=== PATIENT | male | born 1975 | race Caucasian/White ===

== ENCOUNTER 2016-12-17 14:01 | Emergency (ER) | payer BC, MEDICAID ==
[2016-12-17 14:19] VITALS: BP 122/84; PULSE 85; RESP 18; TEMP 98; O2SAT 97
--- NOTE | 2016-12-17 14:58 | EDPHY ---
H & P Time Seen by Provider: 12/17/16 14:18 HPI/ROS: This patient reports some cough for 6 weeks. He describes this is dry in nature. The cough is more prominent in the morning in the afternoon. He took amoxicillin for 7 days 3 weeks into the illness without resolution of his symptoms. He had the amoxicillin at home. He did not see clinician. He now also has a sore throat for 3 days. The sore throat is mild in intensity. He notes no exacerbating or alleviating factors for symptoms. ROS: No fevers or chills. No night sweats. No other constitutional symptoms. HEENT: No nasal congestion. No ear pain Pulmonary: No pleuritic pain. No respiratory distress. No wheezing. No shortness of breath. No hemoptysis. Cardiovascular: No chest pain. No lightheadedness. No lower extremity swelling or calf pain. GI: No symptoms Integumentary: No skin rash. He did have a eponychium by his description to the left 3rd toe that resolve with warm soaks and antibiotic ointment 7 point ROS is otherwise negative. Past Medical/Surgical History: Otherwise healthy Social History: Nonsmoker. Rare marijuana Rare alcohol. No IV or illicit drug use Smoking Status: Light smoker Physical Exam: General Appearance: Alert, no distress. Eyes: Pupils equal and round no pallor or injection. ENT, Mouth: Mucous membranes moist. Respiratory: There are no retractions, lungs are clear to auscultation. Cardiovascular: Regular rate and rhythm. No murmur gallop rub. No leg swelling or tenderness Gastrointestinal: Abdomen is soft and nontender, no masses, bowel sounds normal. Neurological: GCS 15 with no sensory motor deficits Skin: Warm and dry, no rashes. Musculoskeletal: Neck is supple nontender. Extremities are symmetrical, full range of motion. Psychiatric: Mood and affect normal DIFFERENTIAL DIAGNOSIS: After history and physical exam differential diagnosis was considered for pertussis, other atypical bacteria, viral illness, viral pharyngitis, strep pharyngitis, influenza, pulmonary lesion, doubt parasitic disease or other Constitutional: Initial Vital Signs Temperature (C) 36.6 C 12/17/16 14:11 Heart Rate 85 12/17/16 14:11 Respiratory Rate 18 12/17/16 14:11 Blood Pressure 122/84 H 12/17/16 14:11 O2 Sat (%) 97 12/17/16 14:11 O2 Delivery Mode Room Air Allergies/Adverse Reactions: No Known Allergies Allergy (Unverified 09/27/15 15:46) Home Medications: Medication Instructions Recorded Azithromycin [Zithromax] 250 mg PO DAILY #6 tab 12/17/16 MDM/Departure - MDM Diagnostics: Chest x-ray: Normal by my interpretation ED Course/Re-evaluation: Rapid strep is negative Rapid influenza test is negative. Discussion: Will cover this patient with Zithromax antibiotic for potential pertussis or other atypical bacteria. I counseled regarding this. Patient looks well clinically with no lung findings on auscultation, heart murmurs, no history of illicit drug use, no clinical evidence to suggest PE or DVT and no other concerning findings. He will follow up with Dr. Eric Garcia of Infectious Disease for any ongoing symptoms despite the treatment plan. I also recommended he establish a primary care physician with Dr. Fenton the outpatient physician on-call for today. - Depart Disposition: Home, Routine, Self-Care Clinical Impression: Chronic cough Condition: Good Instructions: Chronic Cough (ED) Additional Instructions: Diagnosis: Chronic cough Plan: Zithromax antibiotic Studies pending for pertussis. Zithromax would cover this as well as other atypical bacteria. See Dr. Fenton to establish primary care physician If he have ongoing cough despite the Zithromax antibiotic the persist beyond the next week, then follow up with Infectious Disease-Dr. Eric Garcia. Prescriptions: Azithromycin [Zithromax] 250 mg PO DAILY #6 tab Referrals: NONE *PRIMARY CARE P,. [Primary Care Provider] - As per Instructions Eric Garcia MD [Medical Doctor] - As per Instructions Aida Fenton MD [[facility] [place] Primary Care Provider] - As per Instructions
[2016-12-20 07:00] LABS: B.PARAPERTUSSIS PCR Negative; B.PERTUSSIS PCR Negative
== END 2016-12-17 15:28 | disposition home or self-care (01) ==
LOC: CED 14:01
DX: R05 Cough (principal); F17.200 Nicotine dependence, unspecified, uncomplicated
CPT/HCPCS: 71020-PO; 87400-PO; 87798-90; 87880-PO

== ENCOUNTER 2017-03-17 10:30 | Emergency (ER) | payer BC, MEDICAID ==
--- NOTE | 2017-03-17 10:53 | EDPHY ---
H & P Time Seen by Provider: 03/17/17 10:35 HPI/ROS: HPI Head injury. 41-year-old female by private vehicle with his significant other. This patient was at home last night. He was playing basketball. He accidentally hit the top of his head on the inside of the door frame. No loss of consciousness. No headache. He has not had any nausea or vomiting. No changes in vision. He slept through the night. He woke this morning without issue. He states that he noticed through the morning he has felt less clarity in his thinking and "fuzzy " in the head. Again he denies any headache. He has had some mild stiffness in his neck associated with the lateral aspects of the neck. He denies any midline neck pain. He denies any loss of sensation or weakness in his extremities. No extremity pain or other complaints. ROS: Constitutional: No fever, no chills. No weakness. As above. Eyes: No discharge. No changes in vision. Musculoskeletal: No back pain. No neck pain. No myalgias or arthralgias. Skin: No lacerations or abrasions. Neurological: No headache. No focal weakness or altered sensation. As above. Past medical history: None. He is not on any anticoagulants or antiplatelet agents. Social history: Nonsmoker. Here with significant other. Drinks alcohol socially. Drink a glass of Tequila last night before the event. Physical Exam: General Appearance: Alert, no distress. This patient is responding to questions appropriately and in full sentences. This patient appears well- hydrated and well-nourished. Head: Normocephalic atraumatic. No evidence of traumatic injury on the top of his head. No hematoma, scalp abrasion, bony deformity or step-off, crepitus noted. Face: Facial bones are stable on palpation. Eyes: Pupils equal and round and reactive to light, no pallor or injection. No lid erythema or edema. No photophobia. No nystagmus. Neurological: Motor sensory function is intact. Cranial nerves are normal. Cerebellar function intact. Gait is normal. Skin: Warm and dry, no rashes. No lacerations, abrasions or contusions. Musculoskeletal: Neck is supple with vague and mild bilateral, posterior lateral soft tissue tenderness on palpation. The trachea is midline. No midline cervical, or upper thoracic tenderness on palpation. No pain with flexion of the neck. Extremities are symmetrical, full range of motion. All joints in the bilateral upper and bilateral lower extremities range without pain or impingement. Psychiatric: No agitation. No depression. Database: EKG: Imaging: Procedures: Emergency department course: Discussed differential diagnosis with the patient. I explained to him that at this time I did not feel that CT imaging of his head was indicated. He is in agreement. I discussed mild concussion syndrome with him. He feels comfortable going home with his significant other. Follow-up and return to emergency department precautions were reviewed with him. All of his questions were answered. He was discharged in good condition. Differential Diagnosis: The differential diagnosis on this patient includes but is not limited to concussion syndrome. Skull fracture, traumatic brain injury, significant cervical spine injury, other significant traumatic injury unlikely. This represents a partial list of diagnoses considered. These considerations are based on history, physical exam, past history, reassessment and diagnostic testing. Smoking Status: Former smoker Constitutional: Initial Vital Signs Temperature (C) 36.4 C 03/17/17 10:40 Heart Rate 67 03/17/17 10:40 Respiratory Rate 18 03/17/17 10:40 Blood Pressure 124/72 H 03/17/17 10:40 O2 Sat (%) 95 03/17/17 10:40 O2 Delivery Mode Room Air Allergies/Adverse Reactions: No Known Allergies Allergy (Unverified 03/17/17 10:43) Home Medications: Medication Instructions Recorded NK [No Known Home Meds] 03/17/17 Departure - Departure Disposition: Home, Routine, Self-Care Clinical Impression: Head injury Condition: Good Instructions: Concussion (ED), Head Injury (ED) Additional Instructions: Read and follow provided instructions. Follow-up with your primary care physician in 1-2 days for re-evaluation as needed. Return to the emergency department for worsening symptoms, headache, nausea and vomiting, worsening confusion or other serious concerns. Referrals: NONE *PRIMARY CARE P,. [Primary Care Provider] - As per Instructions
[2017-03-17 10:54] VITALS: BP 124/72; PULSE 67; RESP 18; TEMP 97.5; O2SAT 95
== END 2017-03-17 11:00 | disposition home or self-care (01) ==
LOC: CED 10:30
DX: S09.90XA Unspecified injury of head, initial encounter (principal); Z87.891 Personal history of nicotine dependence; W22.8XXA Striking against or struck by other objects, initial encounter; Y92.009 Unspecified place in unspecified non-institutional (private) residence as the place of occurrence of the external cause; Y99.8 Other external cause status; Y93.67 Activity, basketball